=== PATIENT | female | born 1985 | race Native Hawaiian/Other Pacific Islander ===

== ENCOUNTER 2022-06-24 11:01 | Outpatient (CLI) | payer BC ==
[2022-06-24 13:06] LABS: BHCG - Serum Negative (NEGATIVE); Pregs Control Background? CLEAR/WHITE (CLR/WHITE); Pregs Control Bar Appear? YES (CONTROL BAR)
== END 2022-06-24 11:02 | disposition home or self-care (01) ==
LOC: LABBT 11:01
PROVIDERS: ATTEND Student in an Organized Health Care Education/Training Program
DX: Z01.812 Encounter for preprocedural laboratory examination (principal); E04.1 Nontoxic single thyroid nodule; D50.9 Iron deficiency anemia, unspecified; J34.2 Deviated nasal septum; Z20.822 Contact with and (suspected) exposure to COVID-19
CPT/HCPCS: 84703; 85014; 87811

== ENCOUNTER 2022-06-29 07:17 | Observation (INO) | payer BC ==
[2022-06-24 17:11] VITALS: BMI 37.8
[2022-06-29] MEDS ORDERED: fentaNYL Citrate/PF 100 MCG/2 ML SYRINGE ONE (11:20)
[2022-06-29] MEDS ORDERED: ePHEDrine 50 MG/ML VIAL ONE (11:29)
[2022-06-29] MEDS ORDERED: Glycopyrrolate 0.2 MG/ML 5 ML SYRINGE ONE (11:29)
[2022-06-29] MEDS ORDERED: Labetalol HCl 100 MG/20 ML VIAL ONE (11:29)
[2022-06-29] MEDS ORDERED: Neostigmine Methylsulfate 3 MG/3 ML SYRINGE ONE (11:29)
[2022-06-29] MEDS ORDERED: Dexamethasone 20 MG/5 ML VIAL ONE (11:29)
[2022-06-29] MEDS ORDERED: Lidocaine 1% PF 5 ML VIAL ONE (11:29)
[2022-06-29] MEDS ORDERED: Rocuronium Bromide 10 MG/ML (10ML VIAL) ONE (11:29)
[2022-06-29] MEDS ORDERED: Phenylephrine 10 MG/ML VIAL ONE (11:29)
[2022-06-29] MEDS ORDERED: PROPOFOL 200 MG/20 ML VIAL ONE (11:29)
[2022-06-29] MEDS ORDERED: Ondansetron PF 4 MG/2 ML Vial ONE (11:29)
[2022-06-29] MEDS ORDERED: Ondansetron HCl/PF 4 MG/2 ML Vial IVP PRN (13:08)
[2022-06-29] MEDS ORDERED: Promethazine HCl 25 MG/ML VIAL IVPB PRN (13:08)
[2022-06-29] MEDS ORDERED: Meperidine HCl/PF 25 MG/ML VIAL SLOW IVP PRN (13:08)
[2022-06-29] MEDS ORDERED: HYDROmorphone 2 MG/ML VIAL SLOW IVP PRN (13:08)
[2022-06-29] MEDS ORDERED: Promethazine HCl 25 MG/ML VIAL IM PRN (13:08)
[2022-06-29] MEDS ORDERED: Morphine 4 MG/ML VIAL SLOW IVP PRN (16:01)
[2022-06-29] MEDS ORDERED: Ondansetron PF 4 MG/2 ML Vial IVP PRN (16:02)
[2022-06-29] MEDS ORDERED: Fentanyl 100 MCG/2 ML VIAL ONE (16:17)
[2022-06-29] MEDS: Lactated Ringer's 1,000 ML IV SCH (19:00)
[2022-06-29] MEDS: Docusate 100 MG CAP PO SCH (20:36)
[2022-06-29] MEDS: HYDROcodone/Acetaminophen 5/325 mg Tablet PO PRN (20:39)
[2022-06-30] MEDS: Lactated Ringer's 1,000 ML IV SCH ×2 (01:06→14:41)
[2022-06-30] MEDS: Docusate 100 MG CAP PO SCH (08:32)
[2022-06-30 09:51] VITALS: TEMP 98.2
[2022-06-30] MEDS: HYDROcodone/Acetaminophen 5/325 mg Tablet PO PRN (10:09)
[2022-06-30 12:59] VITALS: BP 138/92
== END 2022-06-30 13:35 | disposition home or self-care (01) ==
LOC: SDC 07:17 → SURG A 18:45
PROVIDERS: ADMIT Student in an Organized Health Care Education/Training Program; ATTEND Student in an Organized Health Care Education/Training Program
PROC: 0GTH0ZZ Resection of Right Thyroid Gland Lobe, Open Approach (ICD-10-PCS; principal; 2022-06-29)
PROC: 0GTJ0ZZ Resection of Thyroid Gland Isthmus, Open Approach (ICD-10-PCS; 2022-06-29)
DX: E04.2 Nontoxic multinodular goiter (principal); E06.3 Autoimmune thyroiditis; D50.9 Iron deficiency anemia, unspecified; J34.2 Deviated nasal septum; F45.8 Other somatoform disorders; I10 Essential (primary) hypertension; E66.9 Obesity, unspecified; Z68.37 Body mass index [BMI] 37.0-37.9, adult; Z87.891 Personal history of nicotine dependence; Z79.899 Other long term (current) drug therapy
CPT/HCPCS: 88307; C1713; C1776; J1100; J2370; J2405; J2704; J3010; J3490; J7120